=== PATIENT | female | born 1970 | race Caucasian/White ===

== ENCOUNTER 2021-11-29 06:35 | Day surgery (SDC) | payer BC ==
[2021-11-29] VITALS (8 sets, daily range): BP systolic 107–135; BP diastolic 53–79; PULSE 52–74; TEMP 97.4–97.5
[~2021-11-29] VITALS: Ht 172.7 cm; Wt 67.9 kg
[2021-11-29] MEDS ORDERED: MOTRIN 200200 MG/TAB PO (07:38)
[2021-11-29] MEDS ORDERED: TYLENOL 500MG500 MG PO (07:40)
[2021-11-29] MEDS ORDERED: NORCO 325 MG-51 TAB PO (10:00)
--- NOTE | 2021-11-29 13:00 | NUR ---
1030 RETURNS TO ROOM 7 PER CART. PATIENT DROWSY, AROUSES SPONTANEOUSLY. LYING ON LEFT SIDE. REPORTS SLIGHT NAUSEA, NO VOMITTING. VITAL SIGNS OBTAINED. ABD SOFT. INCISIONS X 3 INTACT WITHOUT DRAINAGE. REPORTS SLIGHT BURNING SENSATION LEFT LOWER ABD. 1100 DOZES FOR INTERVALS. MAKES OWN POSITION CHANGE. DENIES NAUSEA. 1130 TOLERATES PO WATER AND SPRITE WITHOUT NAUSEA. 1225 REPORTS CONTINUED BURNING DISCOMFORT LEFT LOWER ABD. PO PAIN MED GIVEN. TOLERATES MUFFIN. 1300 SITS ON EDGE OF CART, DRESSES SELF.
== END 2021-11-29 13:15 | disposition home or self-care (01) ==
LOC: SDCO 06:35
DX: K41.90 Unilateral femoral hernia, without obstruction or gangrene, not specified as recurrent (principal); D17.79 Benign lipomatous neoplasm of other sites; K40.90 Unilateral inguinal hernia, without obstruction or gangrene, not specified as recurrent; Z87.891 Personal history of nicotine dependence; Z28.311 Partially vaccinated for COVID-19; Z28.9 Immunization not carried out for unspecified reason
CPT/HCPCS: C1781; J0690; J1100; J1885; J2405; J2550; J2704; J3010; J7120

== ENCOUNTER 2022-07-04 07:02 | Day surgery (SDC) | payer BC ==
[2022-07-04] VITALS (7 sets, daily range): BP systolic 113–131; BP diastolic 66–78; PULSE 64–95; TEMP 96.6–97.7
[~2022-07-04] VITALS: Ht 172.7 cm; Wt 70.8 kg
[~2022-07-04 07:02] MED LIST: MOTRIN 200200 MG/TAB PO; NORCO 325 MG-51 TAB PO; TYLENOL 500MG500 MG PO
[2022-07-04] MEDS ORDERED: NORCO 325 MG-51 TAB PO (08:31)
--- NOTE | 2022-07-04 13:05 | NUR ---
1042 RECEIVED REPORT FROM DOE HERNANDEZ IN PACU. 1045 PT ARRIVAL TO BAY 7. ANSWERING QUESTIONS APPROPRIATELY, BREATHING EVEN AND UNLABORED. C/O 7/10 HEADACHE. 1050 PT GIVEN JUICE AND TOAST 1054 TREATED WITH PRN IBUPROFEN FOR HEADACHE AT PT'S REQUEST. 1200 IV DISCONTINUED. PT RESTING ON STRETCHER W/ EYES CLOSED WHILE WAITING FOR A RIDE HOME. 1245 DISCHARGE INSTRUCTIONS AND PT EDUCATIONAL MATERIAL REVIEWED WITH PT AND HER . QUESTIONS INVITED AND ANSWERED. 1305 PT TO LOBBY VIA WHEEL CHAIR FOR RIDE HOME WITH VIA POV.
== END 2022-07-04 13:05 | disposition home or self-care (01) ==
LOC: SDCO 07:02
DX: K40.90 Unilateral inguinal hernia, without obstruction or gangrene, not specified as recurrent (principal)
CPT/HCPCS: C1781; J0690; J1100; J1885; J2405; J2704; J3010; J7120